=== PATIENT | female | born 1935 | race Caucasian/White ===

== ENCOUNTER 2016-05-14 10:18 | Outpatient (CLI) | payer MEDICARE ==
[2016-05-14 11:23] LABS: #Basophils 0.1 thou/uL (0.0-0.2); #Eosinphils 0.2 thou/uL (0.0-0.7); #Lymphocytes 0.9 thou/uL (1.20-3.40); #Monocytes 0.3 thou/uL (0.11-0.59); #Neutrophils 2.5 thou/uL (1.40-6.50); %Basophils 1.4 % (0.0-1.0); %Monocytes 8.3 % (0.0-10.0); Hematocrit 42.7 % (36.0-47.0); Mean Platelet Volume 10.3 fL (7.4-10.4); Red Blood Cell (RBC) Count 4.66 mill/uL (4.20-5.40)
[2016-05-14 11:31] LABS: ALT (SGPT) 16 U/L (0-55); AST (SGOT) 22 U/L (5-34); Alkaline Phosphatase 49 U/L (40-150); Anion Gap 16 mmol/L (10-20); BUN (Urea Nitrogen) 14 mg/dL (9.8-20.1); Calc. Creatinine Clearance 0 mL/min (70-130); Calcium 9.8 mg/dL (7.8-10.44); Carbon Dioxide 28 mmol/L (23-31); Chloride 106 mmol/L (98-107); Estimated GFR-MDRD 66; Globulin 2.4 g/dL (2.4-3.5); LDL Cholesterol, Calculated 94 mg/dL; Protein, Total 6.6 g/dL (5.8-8.1)
== END 2016-05-14 10:19 | disposition home or self-care (01) ==
LOC: HPCALD 10:18
PROVIDERS: ATTEND Family Medicine
DX: I10 Essential (primary) hypertension (principal)
CPT/HCPCS: 36415; 80053; 80061; 84443; 85025

== ENCOUNTER 2016-07-15 14:45 | Outpatient (CLI) | payer MEDICARE ==
[2016-07-15 16:05] LABS: #Basophils 0.1 thou/uL (0.0-0.2); #Eosinphils 0.3 thou/uL (0.0-0.7); #Monocytes 0.4 thou/uL (0.11-0.59); #Neutrophils 3.8 thou/uL (1.40-6.50); %Eosinophils 4.8 % (0.0-10.0); %Lymphocytes 18.9 % (21.0-51.0); %Monocytes 6.6 % (0.0-10.0); %Neutrophils 68.7 % (42.0-75.0); Hemoglobin 13.5 g/dL (12.0-16.0); Mean Corpuscular HGB CONC 31.7 g/dL (32.0-36.0); Mean Corpuscular Hemoglobin 30.1 pg (27.0-31.0); Platelet Count 143 thou/uL (130-400); RBC Distribution Width 13.2 % (11.5-14.5); White Blood Cell (WBC) Count 5.5 thou/uL (4.8-10.8)
== END 2016-07-15 14:46 | disposition home or self-care (01) ==
LOC: HPCALD 14:45
PROVIDERS: ATTEND Family Medicine
DX: D72.810 Lymphocytopenia (principal)
CPT/HCPCS: 36415; 85025

== ENCOUNTER 2017-06-24 16:47 | Outpatient (CLI) | payer MEDICARE ==
[2017-06-24 21:55] LABS: ALT (SGPT) 13 U/L (8-55); AST (SGOT) 16 U/L (5-34); Albumin 4.2 g/dL (3.4-4.8); Alkaline Phosphatase 52 U/L (40-150); Anion Gap 10 mmol/L (10-20); BUN (Urea Nitrogen) 19 mg/dL (9.8-20.1); Bilirubin, Total 0.6 mg/dL (0.2-1.2); Calc. Creatinine Clearance 0 mL/min (70-130); Calcium 10.1 mg/dL (7.8-10.44); Carbon Dioxide 31 mmol/L (23-31); Chloride 105 mmol/L (98-107); Estimated GFR-MDRD 47; Globulin 2.4 g/dL (2.4-3.5); Glucose 98 mg/dL (83-110); Potassium 4.3 mmol/L (3.5-5.1); Protein, Total 6.6 g/dL (6.0-8.3); Sodium 142 mmol/L (136-145)
[2017-06-24 22:10] LABS: #Eosinphils 0.2 thou/uL (0.0-0.7); #Lymphocytes 1.3 thou/uL (1.20-3.40); #Monocytes 0.5 thou/uL (0.11-0.59); #Neutrophils 5.2 thou/uL (1.40-6.50); %Basophils 0.5 % (0.0-1.0); %Lymphocytes 17.7 % (21.0-51.0); %Monocytes 7.1 % (0.0-10.0); %Neutrophils 71.8 % (42.0-75.0); Hemoglobin 12.6 g/dL (12.0-16.0); Mean Corpuscular HGB CONC 32.4 g/dL (32.0-36.0); Mean Corpuscular Hemoglobin 29.8 pg (27.0-31.0); Mean Platelet Volume 10.6 fL (7.4-10.4); Platelet Count 166 thou/uL (130-400); RBC Distribution Width 12.6 % (11.5-14.5); Red Blood Cell (RBC) Count 4.22 mill/uL (4.20-5.40); White Blood Cell (WBC) Count 7.2 thou/uL (4.8-10.8)
== END 2017-06-24 16:48 | disposition home or self-care (01) ==
LOC: BUREKG 16:47
PROVIDERS: ATTEND Family Medicine
DX: R55 Syncope and collapse (principal)
CPT/HCPCS: 36415; 80053; 84443; 85025

== ENCOUNTER 2019-04-09 15:15 | Outpatient (CLI) | payer MEDICARE ==
--- NOTE | 2019-04-09 17:58 | RAD ---
LEFT ANKLE: 04/09/19 Four views show no definite acute fracture. Mild osteoporosis could mask subtle injuries. The ankle j oint appears intact. Some soft tissue swelling is seen around the joint. A large calcaneal spur was n oted. IMPRESSION: Soft tissue swelling but no acute fracture seen. POS: HOME
== END 2019-04-09 15:16 | disposition home or self-care (01) ==
LOC: BURRAD 15:15
PROVIDERS: ATTEND Physician Assistant
DX: M25.572 Pain in left ankle and joints of left foot (principal); M79.89 Other specified soft tissue disorders

== ENCOUNTER 2019-08-27 12:32 | Outpatient (CLI) | payer MEDICARE ==
--- NOTE | 2019-08-27 18:36 | RAD ---
RIGHT HIP TWO VIEWS: 08/27/19 There are some minor arthritic changes in the hip joint consisting of slight narrowing and very minor osteophytes. The articular surfaces are smooth. The surrounding bones are intact. IMPRESSION: Very minimal arthritic change. POS: HOME
--- NOTE | 2019-08-27 19:47 | RAD ---
LUMBAR SPINE THREE VIEWS: 08/27/19 Mild rotoscoliosis convexed left is present. 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 Disc space narrowing is present at L3-L4 as well as T11-T12. The aorta is densely calcified. IMPRESSION: Scoliosis and severe degenerative changes as noted above. POS: HOME
== END 2019-08-27 12:33 | disposition home or self-care (01) ==
LOC: BURRAD 12:32
PROVIDERS: ATTEND Family Medicine
DX: M54.41 Lumbago with sciatica, right side (principal); R10.31 Right lower quadrant pain; M47.816 Spondylosis without myelopathy or radiculopathy, lumbar region; M41.9 Scoliosis, unspecified; M48.061 Spinal stenosis, lumbar region without neurogenic claudication; M48.04 Spinal stenosis, thoracic region; M43.17 Spondylolisthesis, lumbosacral region; M16.11 Unilateral primary osteoarthritis, right hip
CPT/HCPCS: 72100

== ENCOUNTER 2024-01-31 10:32 | Emergency (ER) | payer MEDICARE, OTHER ==
[2024-01-31] MEDS ORDERED: HYDROcodone/Acetaminophen 5/325 mg Tablet ONE (11:19)
== END 2024-01-31 13:45 ==
LOC: BURERS 10:32
DX: S42.212A Unspecified displaced fracture of surgical neck of left humerus, initial encounter for closed fracture (principal); I10 Essential (primary) hypertension; W19.XXXA Unspecified fall, initial encounter; Z79.899 Other long term (current) drug therapy
CPT/HCPCS: 99283

== ENCOUNTER 2024-02-13 18:17 | Inpatient (IN) | payer MEDICARE ==
[2024-02-13 21:51] VITALS: BMI 21.7
[2024-02-14] MEDS ORDERED: Calcium Carbonate 500 MG ChewTAB PO PRN (06:17)
[2024-02-14] MEDS ORDERED: Bisacodyl 5 MG TAB PO PRN (06:17)
[2024-02-14] MEDS ORDERED: Bisacodyl 10 MG SUPP PR PRN (06:17)
[2024-02-14] MEDS ORDERED: HYDROXYZINE PAMOATE 50 MG PO PRN (06:36)
[2024-02-14 07:36] LABS: #Eosinophils 0.3 thou/uL (0.0-0.7); #Monocytes 0.5 thou/uL (0.11-0.59); #Neutrophils 5.3 thou/uL (1.40-6.50); %Basophils 0.4 % (0.0-1.0); %Lymphocytes 14.2 % (21.0-51.0); %Monocytes 7.2 % (0.0-10.0); %Neutrophils 74.3 % (42.0-75.0); Hemoglobin 9.8 g/dL (12.0-16.0); Mean Corpuscular HGB CONC 32.7 g/dL (32.0-36.0); Mean Corpuscular Hemoglobin 29.4 pg (27.0-31.0); Mean Corpuscular Volume 89.7 fl (78.0-98.0); Mean Platelet Volume 6.3 fL (7.4-10.4); Platelet Count 315 10x3/uL (130-400); RBC Distribution Width 12.9 % (11.5-14.5); Red Blood Cell (RBC) Count 3.34 mill/uL (4.20-5.40); White Blood Cell (WBC) Count 7.2 10x3/uL (4.8-10.8)
[2024-02-14 07:53] LABS: ALT (SGPT) 9 U/L (8-55); AST (SGOT) 15 U/L (5-34); Albumin 2.8 g/dL (3.4-4.8); Alkaline Phosphatase 69 U/L (40-110); Anion Gap 11 mmol/L (10-20); BUN (Urea Nitrogen) 10 mg/dL (9.8-20.1); Bilirubin, Total 0.7 mg/dL (0.2-1.2); Calc. Creatinine Clearance 56 mL/min (70-130); Calcium 8.9 mg/dL (7.8-10.44); Carbon Dioxide 28 mmol/L (23-31); Chloride 106 mmol/L (98-107); Estimated GFR 86; Globulin 2.4 g/dL (2.4-3.5); Glucose 97 mg/dL (83-110); Potassium 4.1 mmol/L (3.5-5.1); Protein, Total 5.2 g/dL (5.8-8.1); Sodium 141 mmol/L (136-145)
[2024-02-14] MEDS: Ferrous Sulfate 325 MG TAB PO SCH (08:58)
[2024-02-14] MEDS: Sertraline 100 MG TAB PO SCH (09:02)
[2024-02-14] MEDS: Acetaminophen 500 MG TAB PO SCH (09:02)
[2024-02-14] MEDS: Famotidine 20 MG TAB PO SCH (09:03)
[2024-02-14] MEDS: Nebivolol HCl 5 MG TAB PO SCH (09:03)
[2024-02-14] MEDS: Divalproex Sodium 125 mg Sprinkle Capsule PO SCH (09:03)
[2024-02-14] MEDS: levETIRAcetam 250 MG TAB PO SCH (09:03)
[2024-02-14] MEDS: Senokot S 8.6-50 MG TAB PO SCH (09:04)
[2024-02-14] MEDS: Lisinopril 5 MG TAB PO SCH (09:04)
[2024-02-14] MEDS: Enoxaparin 40 MG (0.4 mL) SYRINGE SC SCH (11:11)
[2024-02-15] MEDS: Enoxaparin 40 MG (0.4 mL) SYRINGE SC SCH (08:50)
[2024-02-15] MEDS ORDERED: HYDROcodone/Acetaminophen 5/325 mg Tablet PO PRN (12:14)
[2024-02-15] MEDS: HYDROcodone/Acetaminophen 5/325 mg Tablet PO PRN (13:43)
[2024-02-15] MEDS ORDERED: HYDROcodone/Acetaminophen 5/325 mg Tablet PO SCH (14:00)
[2024-02-15] MEDS: hydrOXYzine 25 MG TAB PO PRN (21:01)
[2024-02-16 13:02] VITALS: BMI 21.7
[2024-02-17] MEDS: Acetaminophen 325 MG TAB PO PRN (14:11)
[2024-02-17] MEDS ORDERED: HYDROcodone/Acetaminophen 5/325 mg Tablet PO PRN (17:14)
[2024-02-18] MEDS: Diclofenac 1% 100 GM Topical GEL TP SCH (14:55)
[2024-02-20] MEDS: Ferrous Sulfate 300 MG (5 mL) UDCUP PO SCH (09:37)
[2024-02-25] MEDS ORDERED: hydrOXYzine 25 MG TAB ONE ×2 (06:11→16:18)
[2024-02-25] MEDS ORDERED: Enoxaparin 40 MG (0.4 mL) SYRINGE ONE ×2 (09:11→16:18)
[2024-02-25] MEDS ORDERED: Acetaminophen 500 MG TAB ONE ×2 (09:11→16:18)
[2024-02-25] MEDS ORDERED: Senokot S 8.6-50 MG TAB ONE ×2 (09:11→16:18)
[2024-02-25] MEDS ORDERED: Divalproex Sodium 125 mg Sprinkle Capsule ONE ×2 (09:11→16:18)
[2024-02-25] MEDS ORDERED: levETIRAcetam 250 MG TAB ONE ×2 (09:11→16:18)
[2024-02-25] MEDS ORDERED: Sertraline 100 MG TAB ONE ×2 (09:11→16:18)
[2024-02-25] MEDS ORDERED: Famotidine 20 MG TAB ONE ×2 (09:11→16:18)
[2024-02-25] MEDS ORDERED: Lisinopril 5 MG TAB ONE ×2 (09:11→16:18)
[2024-02-25] MEDS ORDERED: Ferrous Sulfate 300 MG (5 mL) UDCUP ONE ×2 (09:11→16:18)
[2024-02-25] MEDS ORDERED: Nebivolol HCl 5 MG TAB ONE ×2 (09:11→16:18)
[2024-02-26] MEDS ORDERED: Senokot S 8.6-50 MG TAB ONE (16:22)
[2024-02-26] MEDS ORDERED: Divalproex Sodium 125 mg Sprinkle Capsule ONE (16:22)
[2024-02-26] MEDS ORDERED: levETIRAcetam 250 MG TAB ONE (16:22)
[2024-02-26] MEDS ORDERED: Ferrous Sulfate 300 MG (5 mL) UDCUP ONE (16:22)
[2024-02-26] MEDS ORDERED: Nebivolol HCl 5 MG TAB ONE (16:22)
[2024-02-26] MEDS ORDERED: Enoxaparin 40 MG (0.4 mL) SYRINGE ONE (16:22)
[2024-02-26] MEDS ORDERED: Sertraline 100 MG TAB ONE (16:22)
[2024-02-26] MEDS ORDERED: Lisinopril 5 MG TAB ONE (16:22)
[2024-02-26] MEDS ORDERED: Acetaminophen 500 MG TAB ONE (16:22)
[2024-02-26] MEDS ORDERED: Famotidine 20 MG TAB ONE (16:22)
[2024-02-26] MEDS ORDERED: hydrOXYzine 25 MG TAB ONE (16:32)
[2024-02-27 05:42] VITALS: TEMP 97.9
[2024-02-27 09:13] VITALS: BP 120/60
== END 2024-02-27 14:25 | DRG 560 ==
LOC: BURMED 19:55
PROVIDERS: ADMIT Family Medicine; ATTEND Nurse Practitioner
DX: S42.202D Unspecified fracture of upper end of left humerus, subsequent encounter for fracture with routine healing (principal); N39.0 Urinary tract infection, site not specified; S72.91XD Unspecified fracture of right femur, subsequent encounter for closed fracture with routine healing; W18.30XD Fall on same level, unspecified, subsequent encounter; Z66 Do not resuscitate; D64.9 Anemia, unspecified; F03.90 Unspecified dementia, unspecified severity, without behavioral disturbance, psychotic disturbance, mood disturbance, and anxiety; G40.909 Epilepsy, unspecified, not intractable, without status epilepticus; R53.81 Other malaise; I10 Essential (primary) hypertension; Z91.040 Latex allergy status; Z88.2 Allergy status to sulfonamides; Z88.1 Allergy status to other antibiotic agents; Z79.899 Other long term (current) drug therapy
CPT/HCPCS: 36415; 80053; 85025; J1650